=== PATIENT | male | born 1955 | race Caucasian/White ===

== ENCOUNTER 2016-10-22 05:49 | Inpatient (IN) ==
--- NOTE | 2016-10-19 12:46 | EKG Report ---
Stationary ECG Study [facility] Test Date: 10/19/2016 12:48:04 PM Pat Name: JODI GONG Department: Room: Gender: M Postmaster: ALTAGRACIA WOOD [birth year] : 1955 Requested by: Cyrus Wood Order Number: [id number] Reading MD: GERARD JAY Intervals [place] Rate: 68 P: 55 KS: 172 QRS: 59 QRSD: 94 T: 52 QT: 362 QTc: 380 Interpretive Statements SINUS RHYTHM at 68 bpm Mild NST Electronically Signed On 10-21-16 08:37:45 CDT by GERARD JAY [email or web address]
[2016-10-19 14:27] LABS: Basophils # 0.1 10*3/uL (0.0-0.2); Basophils % 0.9 % (0.0-0.8); Eosinophils # 0.3 10*3/uL (0.0-0.87); Eosinophils % 2.5 % (0.00-10.9); Hematocrit 38.7 VOL% (42.0-52.0); Hemoglobin 12.6 GM/DL (14.0-18.0); Immature Granulocytes % 0.4 %; Immature Granulocytes Absolute 0.04 #; Lymphocytes # 3.6 10*3/uL (1.4-4.0); Lymphocytes % 35.9 % (21.2-54.2); Mean Corpuscular HGB Conc 32.6 GM/DL (32-36); Mean Corpuscular Hemoglobin 29 PG (27-34); Mean Platelet Volume 9.1 FL (9.6-12.0); Monocytes # 0.7 10*3/uL (0.11-0.8); Monocytes % 7.4 % (1.7-12.7); Neutrophils # 5.3 10*3/uL (1.4-7.4); Neutrophils % 52.9 % (38.7-73.9); Platelet Count 320 T/CUMM (130-400); Red Cell Distribution Width 14.6 % (9.3-17.3)
[2016-10-19 14:39] LABS: Apearance,Urine CLOUDY (Clear); Bilirubin,Urine Negative (Negative); Blood, Urine Large mg/dL (Negative); Glucose,Urine (UA) Negative (Negative); Ketones,Urine Negative (Negative); Mucus,Urine Few /LPF (Occasional); Nitrite,Urine Negative (Negative); Protein,Urine 100 MG/DL; RBC,Urine 4135 /HPF (0-4); Urine Specific Gravity 1.017 (1.001-1.035); WBC,Urine 25 /HPF (0-6)
[2016-10-19 14:47] LABS: Urine Color Brown (Yellow)
[2016-10-19 15:02] LABS: Calcium 8.5 MG/DL (8.5-10.1); Osmolality,Calculated 278.4 MOS/KG (273-304); Potassium 4.3 MMOL/L (3.5-5.1)
[2016-10-22] MEDS ORDERED: LEVOFLOXACIN INJ 500 MG in PREMIX 1 EACH IV ONE (06:00)
[2016-10-22] MEDS ORDERED: FAMOTIDINE 20 MG TABLET PO ONE (08:27)
[2016-10-22] MEDS ORDERED: DIAZEPAM 5 MG TABLET PO ONE (08:27)
[2016-10-22 09:03] LABS: PT Patient Result 10.7 SECS; Partial Thromboplastin Time 29.2 SECS (0-40)
[2016-10-22] MEDS ORDERED: DIAZEPAM 5 MG TABLET ONE (09:52)
[2016-10-22] MEDS ORDERED: LEVOFLOXACIN INJ 100 ML IV ONE (09:53)
[2016-10-22] MEDS ORDERED: FAMOTIDINE 20 MG TABLET ONE (09:53)
[2016-10-22] MEDS ORDERED: LACTATED RINGERS 1,000 ML IV SCH (10:00)
--- NOTE | 2016-10-22 10:52 | Anesthesia Post-Op ---
Anesthesia Post OP - Post Ansesthetic Evaluation Patient seen in post op: Yes Resp: within normal limits CV: within normal limits Mental: within normal limits Temp: within normal limits [id number]-[id number]: within normal limits Nausea and Vomiting: within normal limits Pain: within normal limits
[2016-10-22] MEDS ORDERED: PROPOFOL 200 MG/20 ML VIAL IV ONE (10:57)
[2016-10-22] MEDS ORDERED: SEVOFLURANE 1 UNIT/15 MINUTE INH ONE (10:57)
[2016-10-22] MEDS ORDERED: MIDAZOLAM 2 MG/2 ML VIAL ONE (10:57)
[2016-10-22] MEDS ORDERED: fentaNYL 100 MCG/2 ML VIAL ONE (10:58)
[2016-10-22] MEDS ORDERED: GLYCOPYRROLATE 0.4 MG/2 ML VIAL ONE (10:58)
[2016-10-22] MEDS ORDERED: ONDANSETRON 4 MG/2 ML VIAL ONE (10:58)
[2016-10-22] MEDS ORDERED: MEPERIDINE 25 MG/1 ML VIAL IM PRN (12:11)
[2016-10-22] MEDS ORDERED: PHENAZOPYRIDINE 95 MG TABLET PO PRN (12:11)
[2016-10-22] MEDS ORDERED: HYOSCYAMINE 0.125 MG TABLET PO PRN (12:30)
--- NOTE | 2016-10-22 12:33 | Urology Progress Note ---
Urology - PN: Subj Interval history: Postoperative check. Patient is awake and alert. Complains of bladder spasms. We will offer some Levsin. Urine is fairly bloody but that is related to the tumor was around the left ureteral orifice. So I did minimal cautery. He will have more bleeding than the usual. Vital signs are stable. Patient is stable. Exam - Constitutional Vitals: Period Temp Pulse Resp BP Sys/Triplett Pulse Ox Last 24 Hr 97.0 F-97.4 F 64-87 16-20 94-125/60-80 97-100 Results - Labs CBC & BMP: 10/19/16 12:40 10/19/16 14:52
[2016-10-22] MEDS: DEXTROSE 5% NACL 0.45% 1,000 ML IV SCH (14:38)
[2016-10-23] MEDS: DEXTROSE 5% NACL 0.45% 1,000 ML IV SCH (01:26)
--- NOTE | 2016-10-23 12:37 | Discharge Summary ---
Hospital Course - Hospital Course Hospital Course: 61-year-old gentleman found to have a bladder tumor. He underwent resection. The left ureteral orifice had to be resected deeply because there was tumor and the distal ureter. He is not having any flank pain is not bleeding at present. We will remove his catheter and discharge him. Unfortunately he is on Coumadin for aortic valve and is also on a full dose aspirin. He will start his Coumadin on 10/24/16 and then start his aspirin back 10/27/16. If he begins bleeding he is going to have to hold his blood thinners. The problem with this case, is that because he had tumor at the ureteral orifice we do little cauterizing around there. His risk of bleeding is significant. I expect him to have a bleeding episode. Diagnosis - Discharge Diagnosis (1) Bladder cancer Status: Acute Discharge Plan - Discharge Data Disposition: Disch To Home/Self Care Condition at Discharge: Stable Discharge Diet: advance to your usual diet Activity: no lifting, other (Minimal, walking on flat ground encouraged) Hygiene: no restrictions Weight Bearing at Discharge: full weight bearing Driving: not until seen by doctor Contact your physician if you experience:: fever over 101, Difficulty voiding, Bleeding - Discharge Medications No Action clonazePAM [Clonazepam] 1 mg PO BID Cholecalciferol (Vitamin D3) [Vitamin D3] 2,000 unit PO DAILY Ascorbic Acid [Vitamin C] 500 mg PO DAILY Warfarin [Coumadin] 5 mg PO MOFR Venlafaxine HCl [Effexor XR] 150 mg PO DAILY Aspirin EC Tab 325 mg PO DAILY #30 tablet Metoprolol Tartrate Tab [Lopressor Tab] 25 mg PO BID #60 tablet cloNIDine TAB [Catapres Tab] 0.1 mg PO BID #60 tablet Warfarin Sodium 7.5 mg PO SUTUWETHSA - Follow Up or Referral - Forms/Instructions Exam - Constitutional Vitals: Period Temp Pulse Resp BP Sys/Triplett Pulse Ox Last 24 Hr 96.5 F-97.6 F 57-68 16-20 106-127/63-71 94-99 DS: Provider Date of admission: 10/22/16 05:49 Primary care physician: Cristian Shearer I Attending physician on admission: Cyrus Wood MD Discharging clinician: Cyrus Wood MD
[2016-10-23 12:42] VITALS: BP 99/52
--- NOTE | 2016-10-26 14:22 | Pathology Report from [facility] ---
[facility] ACCESSION # : [id number] PATIENT NAME : Jr. Martinez Robert C. ORDERING DR : PREETI ADEN MD CLINICAL HX: Bladder cancer POST-OP DX: Same SPECIMEN INFO: Bladder tumor, portion of distal urethra GROSS DESCRIPTION: Received in formalin labeled JODI MARTINEZ is a 2.0 x 1.2 cm aggregate of pink dow tissue submitted in one cassette. DIAGNOSIS FOR JODI MARTINEZ JR.: URINARY BLADDER, TURB: TYPE: Transitional cell carcinoma, noninvasive. SITE: Not specified. HISTOLOGIC GRADE : Low grade. MUSCULARIS PROPRIA PRESENCE: Muscularis propria present MICROSCOPIC TUMOR EXTENSION: Noninvasive. LYMPHOVASCULAR INVASION: Not identified. ASSOCIATED EPITHELIAL LESIONS: None. AJCC PATHOLOGIC STAGE 0a ( pTapNX) COLLECTED DATE: 10/22/2016 [facility] REPORT DATE: 10/25/2016 ELECTRONICALLY SIGNED BY: No Morel M.D. 10/25/2016 - 9:07:00 GERTRUDIS
--- NOTE | 2016-10-27 11:07 | Operative Note ---
DATE: 10/22/2016 PREOPERATIVE DIAGNOSIS: BLADDER TUMOR. POSTOPERATIVE DIAGNOSIS: SAME. OPERATIVE PROCEDURE: Transurethral resection of a bladder tumor, measured 3.6 cm. SURGEON: Cyrus Wood MD COMPLICATIONS: None. ESTIMATED BLOOD LOSS: 10 mL. BRIEF CLINICAL SUMMARY: The patient is a 61-year-old white male who is found to have a bladder tumor at the left base encompassing the left ureteral orifice. A CT urogram performed previously showed no hydronephrosis. He is brought in for evaluation, and cystoscopy showed a tumor at the base of the bladder covering the ureteral orifice. He is now brought in for resection. Proposed procedure of transurethral resection of this bladder tumor was explained at length and in detail. Risks, complications, outcomes, sequelae, prognosis and alternative therapy was thoroughly discussed. The patient understood and agreed to proceed. TECHNIQUE: The patient was brought to the operative suite, given a general LMA anesthetic and placed in lithotomy position, prepared and draped in the usual sterile manner. A 28-[place] resectoscope sheath with [place] obturator was then passed in the bladder. The obturator was removed. The [employer] working element with 30-degree lens and loop was placed in the sheath. Inspection of the bladder revealed a tumor at the left base. The ureteral orifice could not be seen. The right is normal. There is no other lesion. The tumor was resected in the usual fashion. It is evident after beginning the resection that the ureteral orifice is involved. This was resected. After resecting all the tumor one can see that there is still tumor in the distal ureter and this was resected slightly more. Cautery was used at the periphery, but not at the ureteral orifice. The bladder was Ellik'd free of chips. Inspection revealed hemostasis complete. Bladder was free of tumor. The resectoscope was then removed. A 20-[place] 3-way Robert was inserted into the bladder, irrigated and clear. The catheter was connected to gravity drainage. The patient tolerated the procedure well and was sent to recovery room in stable condition. GERTRUDIS
== END 2016-10-23 13:57 | disposition home or self-care (01) | DRG 657 ==
LOC: N.OR 05:49 → N.SDSINP 05:49 → EDSTATUS 10:30 → N.5E 11:54
PROVIDERS: ADMIT Urology; ATTEND Urology